=== PATIENT | female | born 1945 | race Caucasian/White ===

== ENCOUNTER 2020-05-17 05:18 | Emergency (ER) | payer MEDICARE, MEDICAID ==
[~2020-05-17] VITALS: Ht 172.7 cm; Wt 79.5 kg
[2020-05-17 05:26] VITALS: BP 168/88
[2020-05-17] MEDS ORDERED: LORazepam 1MG TABLET PO ONE (05:30)
[2020-05-17] MEDS ORDERED: LORazepam 1MG TABLET ONE (05:32)
[2020-05-17] MEDS ORDERED: LURASIDONE 20 MG TABLET PO ONE (05:38)
[2020-05-17 05:49] LABS: BASOPHILS % (AUTO) 1 % (0-1); EOSINOPHILS % (AUTO) 2 % (1-7); LYMPHOCYTES % (AUTO) 23 % (22-44); MEAN CORPUSCULAR HEMOGLOBIN 23.8 pg (27.0-34.8); MEAN CORPUSCULAR HGB CONC 31.9 g/dL (32.4-35.8); MEAN PLATELET VOLUME 8.2 fL (7.4-10.4); MONOCYTES % (AUTO) 11 % (2-9); NEUTROPHILS % (AUTO) 64 % (42-75); PLATELET COUNT 328 x10^3/uL (130-400); RED BLOOD COUNT 4.06 x10^6/uL (3.82-5.3); RED CELL DISTRIBUTION WIDTH 18.1 % (9.6-15.2)
[2020-05-17] MEDS ORDERED: PLEASE ENTER ALLERGIES MC SCH (06:00)
[2020-05-17 06:03] LABS: ALANINE AMINOTRANSFERASE 17 U/L (12-78); ALBUMIN 3.8 g/dL (3.4-5.0); ANION GAP 9 mmol/L (5-15); CHLORIDE 112 mmol/L (98-107); CREATININE 1.07 mg/dL (0.55-1.02)
[2020-05-17 06:06] LABS: MD NO
[2020-05-17 06:13] LABS: ALKALINE PHOSPHATASE 86 U/L (45-117); BILIRUBIN,TOTAL 0.5 mg/dL (0.2-1.0); SALICYLATE LEVEL < 1.7 mg/dL (2.8-20.0); TOTAL PROTEIN 7.7 g/dL (6.4-8.2)
--- NOTE | 2020-05-17 07:14 | NUR ---
REPORT RECEIVED FROM DANIELLE ALDRICH.
--- NOTE | 2020-05-17 07:15 | NUR ---
DIET TRAY ORDERED AT THIS TIME.
--- NOTE | 2020-05-17 08:25 | NUR ---
Patient given discharge instructions and they have confirmed that they understand the instructions. Patient ambulatory with steady gait. bus pass and [facility] phone number given at dc.
== END 2020-05-17 08:26 ==
LOC: ED 08:20
DX: F31.10 Bipolar disorder, current episode manic without psychotic features, unspecified (principal); I10 Essential (primary) hypertension; K21.9 Gastro-esophageal reflux disease without esophagitis; Z91.14 Patient's other noncompliance with medication regimen
CPT/HCPCS: 36415; 80053; 80307; 84443; 85025; 99283